=== PATIENT | male | born 1955 | race Caucasian/White ===

== ENCOUNTER 2017-08-04 12:21 | Inpatient (IN) ==
[2017-08-04] MEDS ORDERED: ALBUTEROL/IPRATROPIUM 3 ML NEB RESP TX PRN (12:27)
[2017-08-04 13:34] LABS: Basophils % 0.1 % (0.0-0.8); Eosinophils # 0.1 10*3/uL (0.0-0.87); Eosinophils % 0.7 % (0.00-10.9); Hematocrit 39.4 VOL% (42.0-52.0); Hemoglobin 13.1 GM/DL (14.0-18.0); Immature Granulocytes % 0.7 %; Immature Granulocytes Absolute 0.06 #; Lymphocytes # 1.5 10*3/uL (1.4-4.0); Lymphocytes % 18.1 % (21.2-54.2); Mean Corpuscular HGB Conc 33.2 GM/DL (32-36); Mean Corpuscular Hemoglobin 29 PG (27-34); Mean Corpuscular Volume 85.8 FL (87-102); Mean Platelet Volume 9.8 FL (9.6-12.0); Monocytes # 0.7 10*3/uL (0.11-0.8); Monocytes % 9.1 % (1.7-12.7); Neutrophils # 5.8 10*3/uL (1.4-7.4); Neutrophils % 71.3 % (38.7-73.9); Platelet Count 355 T/CUMM (130-400); Red Blood Count 4.59 MC/CUMM (3.8-5.5); Red Cell Distribution Width 13.8 % (9.3-17.3); White Blood Count 8.1 T/CUMM (4-12)
[2017-08-04] MEDS: ALBUTEROL/IPRATROPIUM 3 ML NEB RESP TX SCH ×2 (14:09→20:13)
[2017-08-04 14:18] LABS: Albumin 2.9 G/DL (3.4-5.0); Bilirubin,Total 0.6 MG/DL (0.2-1.0); Calcium 8.4 MG/DL (8.5-10.1); Magnesium 2.2 MG/DL (1.8-2.4); Osmolality,Calculated 285.8 MOS/KG (273-304); Potassium 3.1 MMOL/L (3.5-5.1); Thyroid Stimulating Hormone 2.5 uIU/ml (0.358-3.74); Total Protein 6.6 G/DL (6.4-8.3)
[2017-08-04] MEDS: DEXTROSE 5% NACL 0.45% 1,000 ML IV SCH (14:49)
[2017-08-04] MEDS: LEVOFLOXACIN INJ 500 MG in PREMIX 1 EACH IV SCH (14:49)
[2017-08-04] MEDS: PANTOPRAZOLE 40 MG TABLET PO SCH (14:50)
[2017-08-04] MEDS: methylPREDNISolone SOD SUC 40 MG/1 ML VIAL IV SCH (14:50)
[2017-08-04] MEDS: MONTELUKAST 10 MG TABLET PO SCH (14:50)
[2017-08-04] MEDS: cefTAZidime 1,000 MG in SYRINGE 1 EACH IV SCH (16:52)
[2017-08-04] MEDS: POTASSIUM CHLORIDE 20 MEQ TABLET PO PRN (17:35)
[2017-08-04] MEDS ORDERED: POTASSIUM CHLORIDE 20 MEQ TABLET PO ONE (19:28)
[2017-08-04 21:46] LABS: Apearance,Urine CLEAR (Clear); Bacteria,Urine Occasional /HPF (Few); Bilirubin,Urine Negative (Negative); Blood, Urine Negative (Negative); Glucose,Urine (UA) Negative (Negative); Ketones,Urine Negative (Negative); Mucus,Urine Moderate /LPF (Occasional); Nitrite,Urine Negative (Negative); Protein,Urine 30 MG/DL; RBC,Urine 1 /HPF (0-4); Squamous Epithelial Cell,Urine Occasional /HPF (0-10); Urine Color Amber (Yellow); Urine Specific Gravity 1.025 (1.001-1.035); WBC,Urine 1 /HPF (0-6)
[2017-08-04] MEDS: ZALEPLON 5 MG CAPSULE PO SCH (22:51)
[2017-08-05] MEDS: ALBUTEROL/IPRATROPIUM 3 ML NEB RESP TX SCH ×5 (00:55→19:15)
[2017-08-05] MEDS: methylPREDNISolone SOD SUC 40 MG/1 ML VIAL IV SCH ×2 (01:12→14:47)
[2017-08-05] MEDS: cefTAZidime 1,000 MG in SYRINGE 1 EACH IV SCH ×3 (01:12→17:26)
[2017-08-05] MEDS: POTASSIUM CHLORIDE 20 MEQ TABLET PO PRN ×4 (01:12→14:46)
[2017-08-05 07:28] LABS: Basophils % 0.2 % (0.0-0.8); Hematocrit 36.1 VOL% (42.0-52.0); Hemoglobin 12.2 GM/DL (14.0-18.0); Immature Granulocytes % 0.7 %; Immature Granulocytes Absolute 0.04 #; Lymphocytes # 0.8 10*3/uL (1.4-4.0); Lymphocytes % 13.8 % (21.2-54.2); Mean Corpuscular HGB Conc 33.8 GM/DL (32-36); Mean Corpuscular Hemoglobin 29 PG (27-34); Mean Corpuscular Volume 84.9 FL (87-102); Mean Platelet Volume 9.9 FL (9.6-12.0); Monocytes # 0.2 10*3/uL (0.11-0.8); Monocytes % 3.1 % (1.7-12.7); Neutrophils % 82.2 % (38.7-73.9); Platelet Count 406 T/CUMM (130-400); Red Blood Count 4.25 MC/CUMM (3.8-5.5); Red Cell Distribution Width 13.7 % (9.3-17.3); White Blood Count 6.1 T/CUMM (4-12)
[2017-08-05 07:57] LABS: Calcium 8.7 MG/DL (8.5-10.1); Magnesium 2.1 MG/DL (1.8-2.4); Osmolality,Calculated 285.3 MOS/KG (273-304); Potassium 3.9 MMOL/L (3.5-5.1)
[2017-08-05] MEDS: amLODIPine 5 MG TABLET PO SCH (08:52)
[2017-08-05] MEDS: PANTOPRAZOLE 40 MG TABLET PO SCH (08:52)
[2017-08-05] MEDS: MONTELUKAST 10 MG TABLET PO SCH (08:52)
[2017-08-05] MEDS: DEXTROSE 5% NACL 0.45% 1,000 ML IV SCH ×2 (11:29→22:53)
[2017-08-05 12:35] LABS: Basophils % 0.1 % (0.0-0.8); Hematocrit 35.7 VOL% (42.0-52.0); Hemoglobin 12.2 GM/DL (14.0-18.0); Immature Granulocytes % 0.7 %; Immature Granulocytes Absolute 0.07 #; Lymphocytes % 9.5 % (21.2-54.2); Mean Corpuscular HGB Conc 34.2 GM/DL (32-36); Mean Corpuscular Hemoglobin 29 PG (27-34); Mean Corpuscular Volume 84.2 FL (87-102); Mean Platelet Volume 9.5 FL (9.6-12.0); Monocytes # 0.6 10*3/uL (0.11-0.8); Monocytes % 5.1 % (1.7-12.7); Neutrophils # 9.1 10*3/uL (1.4-7.4); Neutrophils % 84.6 % (38.7-73.9); Platelet Count 413 T/CUMM (130-400); Red Blood Count 4.24 MC/CUMM (3.8-5.5); Red Cell Distribution Width 13.8 % (9.3-17.3); White Blood Count 10.7 T/CUMM (4-12)
[2017-08-05] MEDS ORDERED: ALBUTEROL 2.5 MG/3 ML NEB RESP TX ONE ×2 (12:36→12:40)
[2017-08-05] MEDS ORDERED: LIDOCAINE 1% 5 ML VIAL ONE (13:12)
[2017-08-05] MEDS ORDERED: PROPOFOL 200 MG/20 ML VIAL IV ONE (13:12)
[2017-08-05] MEDS: LEVOFLOXACIN INJ 500 MG in PREMIX 1 EACH IV SCH (14:47)
[2017-08-05] MEDS: ZALEPLON 5 MG CAPSULE PO SCH (20:34)
[2017-08-06] MEDS: cefTAZidime 1,000 MG in SYRINGE 1 EACH IV SCH ×3 (00:20→17:07)
[2017-08-06] MEDS: methylPREDNISolone SOD SUC 40 MG/1 ML VIAL IV SCH ×2 (00:20→14:02)
[2017-08-06] MEDS: ALBUTEROL/IPRATROPIUM 3 ML NEB RESP TX SCH ×4 (07:50→19:58)
[2017-08-06] MEDS: amLODIPine 5 MG TABLET PO SCH (12:03)
[2017-08-06] MEDS: PANTOPRAZOLE 40 MG TABLET PO SCH (12:03)
[2017-08-06] MEDS: MONTELUKAST 10 MG TABLET PO SCH (12:03)
[2017-08-06 12:11] LABS: Procalcitonin, S < 0.10 ng/mL (<=0.15)
[2017-08-06] MEDS: LEVOFLOXACIN INJ 500 MG in PREMIX 1 EACH IV SCH (14:04)
[2017-08-06] MEDS: DEXTROSE 5% NACL 0.45% 1,000 ML IV SCH (17:07)
[2017-08-06] MEDS: ZALEPLON 5 MG CAPSULE PO SCH (21:38)
[2017-08-07] MEDS: methylPREDNISolone SOD SUC 40 MG/1 ML VIAL IV SCH ×2 (00:37→20:54)
[2017-08-07] MEDS: cefTAZidime 1,000 MG in SYRINGE 1 EACH IV SCH ×4 (00:38→23:51)
[2017-08-07] MEDS: ALBUTEROL/IPRATROPIUM 3 ML NEB RESP TX SCH ×4 (06:58→19:30)
[2017-08-07] MEDS: PANTOPRAZOLE 40 MG TABLET PO SCH (08:15)
[2017-08-07] MEDS: MONTELUKAST 10 MG TABLET PO SCH (08:15)
[2017-08-07] MEDS: DEXTROSE 5% NACL 0.45% 1,000 ML IV SCH ×2 (08:18→23:56)
[2017-08-07] MEDS: amLODIPine 5 MG TABLET PO SCH (08:38)
[2017-08-07] MEDS: METOCLOPRAMIDE 10 MG/2 ML VIAL IV SCH ×3 (11:51→23:48)
[2017-08-07] MEDS: LEVOFLOXACIN INJ 500 MG in PREMIX 1 EACH IV SCH (12:00)
[2017-08-07] MEDS: ZALEPLON 5 MG CAPSULE PO SCH (20:55)
[2017-08-08] MEDS: ALBUTEROL/IPRATROPIUM 3 ML NEB RESP TX SCH ×4 (00:43→19:09)
[2017-08-08] MEDS: METOCLOPRAMIDE 10 MG/2 ML VIAL IV SCH ×3 (05:29→18:02)
[2017-08-08] MEDS: cefTAZidime 1,000 MG in SYRINGE 1 EACH IV SCH ×2 (08:42→15:32)
[2017-08-08] MEDS: MONTELUKAST 10 MG TABLET PO SCH (08:43)
[2017-08-08] MEDS: amLODIPine 5 MG TABLET PO SCH (08:43)
[2017-08-08] MEDS: PANTOPRAZOLE 40 MG TABLET PO SCH (08:43)
[2017-08-08] MEDS: LEVOFLOXACIN INJ 500 MG in PREMIX 1 EACH IV SCH (12:32)
[2017-08-08] MEDS: DEXTROSE 5% NACL 0.45% 1,000 ML IV SCH (15:32)
[2017-08-08] MEDS: ZALEPLON 5 MG CAPSULE PO SCH (20:08)
[2017-08-08] MEDS: methylPREDNISolone SOD SUC 40 MG/1 ML VIAL IV SCH (20:09)
[2017-08-09] MEDS: ALBUTEROL/IPRATROPIUM 3 ML NEB RESP TX SCH (00:35)
[2017-08-09] MEDS: cefTAZidime 1,000 MG in SYRINGE 1 EACH IV SCH ×2 (00:50→09:37)
[2017-08-09] MEDS: METOCLOPRAMIDE 10 MG/2 ML VIAL IV SCH ×3 (00:50→12:10)
[2017-08-09] MEDS: amLODIPine 5 MG TABLET PO SCH (09:37)
[2017-08-09] MEDS: MONTELUKAST 10 MG TABLET PO SCH (09:37)
[2017-08-09] MEDS: PANTOPRAZOLE 40 MG TABLET PO SCH (09:37)
[2017-08-09] MEDS: DEXTROSE 5% NACL 0.45% 1,000 ML IV SCH (09:40)
[2017-08-09 11:15] VITALS: BP 133/86
== END 2017-08-09 12:47 | disposition home or self-care (01) | DRG 178 ==
LOC: N.5E 12:41
PROVIDERS: ADMIT Internal Medicine Pulmonary Disease; ATTEND Internal Medicine Pulmonary Disease